=== PATIENT | female | born 1985 | race Caucasian/White ===

== ENCOUNTER 2017-08-15 15:39 | Emergency (ER) | payer SELFPAY ==
[2017-08-15 15:54] VITALS: BP 172/98
[2017-08-15] MEDS ORDERED: LIDOCAINE 2% VISCOUS SOLN 20 ML UDCUP PO ONE (16:07)
[2017-08-15] MEDS ORDERED: KETOROLAC TROMETHAMINE INJ/PF 30 MG/1 ML SDV IM ONE (16:15)
[2017-08-15] MEDS ORDERED: DIPHENHYDRAMINE HCL 50 MG CAPSULE PO ONE (16:15)
[2017-08-15] MEDS ORDERED: PROCHLORPERAZINE EDISYLATE INJ 10 MG/2 ML VIAL IM ONE (16:15)
--- NOTE | 2017-08-15 16:22 | ER Document Report ---
HPI - HPI Pain Level: 5 Notes: Patient is a 31-year-old female with a history of migraines and poor dentition who presents to the ED complaining of dental pain #14 with a possible abscess as well as a migraine headache 1 day. Both symptoms started about the same time. Patient states that she has been using some [id number] meds with minimal relief. She has been eating and drinking, but does have a decreased appetite. She is urinating normally and having normal bowel moods. Patient states that her headache is the same as her migraines that she normally has with associated nausea and light sensitivity. Denies any drug allergies. Denies any IV drug use. No other concerns or complaints at this time. Denies any headache, fever, head injury, neck pain, URI, sore throat, chest pain, palpitations, syncope, cough, shortness of breath, wheeze, dyspnea, abdominal pain, nausea/vomiting/diarrhea, urinary retention, dysuria, hematuria, loss of control of bowel or bladder, numbness/tingling, muscle paralysis/weakness, or rash. - ROS Systems Reviewed and Negative: Yes All other systems reviewed and negative Past Medical History - Social History Smoking Status: Unknown if Ever Smoked Family History: Reviewed & Not Pertinent Vertical Provider Document - CONSTITUTIONAL Agree With Documented VS: Yes Notes: PHYSICAL EXAMINATION: GENERAL: Well-appearing, well-nourished and in no acute distress. A&Ox4. Answers questions appropriately. HEAD: Atraumatic, normocephalic. EYES: Pupils equal round and reactive to light, extraocular movements intact, sclera anicteric, conjunctiva are normal. no nystagmus ENT: EAC clear b/l. TM's intact b/l without erythema, fluid, or perforation. Nares patent and without discharge. oropharynx clear without exudates. No tonsilar hypertrophy or erythema. Moist mucous membranes. No sinus tenderness. Uvula midline. No palatine shift. No tongue protrusion. No respiratory compromise. Mouth: Poor dentition. + severe decay and mild gingivitis. + small area of fluctuance noted. No facial swelling. + tenderness to tooth #14. NECK: Normal range of motion, supple without lymphadenopathy. No rigidity. No midline tenderness. LUNGS: Breath sounds clear to auscultation bilaterally and equal. No wheezes rales or rhonchi. HEART: Regular rate and rhythm without murmurs, rubs, gallops. ABDOMEN: Soft, nontender, nondistended abdomen. No guarding, no rebound. No masses appreciated. Normal bowel sounds present. No CVA tenderness bilaterally. Musculoskeletal: Ext b/l: FROM to passive/active. Strength 5+/5. No deficits noted. No bony tenderness of extremities. Back: FROM to passive/active. Strength 5+/5. No vertebral point tenderness, stepoffs, or deformities. Extremities: No cyanosis, clubbing, or edema b/l. Peripheral pulses 2+. Capillary refill less than 2 seconds. NEUROLOGICAL: NIH 0. GCS 15. Cranial nerves grossly intact. Normal speech, normal gait. Normal sensory, motor exams. Reflexes 2+ b/l. LILLY's negative. Pronator drift negative. PSYCH: Normal mood, normal affect. SKIN: Warm, Dry, normal turgor, no rashes or lesions noted. Course - Re-evaluation Re-evalutation: 08/15/17 16:46 Patient is an afebrile, well-hydrated, 31-year-old female who presents to the ED with a headache, suspect 1 of her usual migraines, and dental pain/ infection. Vitals are acceptable. PE is otherwise unremarkable for any focal neurological deficits. NIH 0, GCS 15, cranial nerves grossly intact. Patient is tolerating p.o. without any difficulties. She has no tachycardia, tachypnea , or hypoxia. I was able to puncture the very small swollen fluctuant area with some scant bloody and purulent discharge. Viscous lidocaine was given. I will be sending her home with a prescription for penicillin to take as directed as she has no insurance. No other labs or imaging warranted at this time based on H&P. Conservative measures otherwise for symptoms with close monitoring. Low suspicion for any meningitis, sepsis, peritonsillar/pharyngeal abscess, respiratory compromise, Audie's, temporal arteritis, or other emergent systemic condition at this time. Patient is aware this condition can change from initial presentation and he needs to monitor symptoms closely. Call to schedule an appointment with a dentist for further evaluation and management. Recheck with your PCM this week as well. Return to the ED with any worsening/ concerning symptoms otherwise as reviewed in discharge. Patient is in agreement. - Vital Signs Vital signs: Temp Pulse Resp BP Pulse Ox 98.3 F 71 16 172/98 H 99 08/15/17 15:53 08/15/17 15:53 08/15/17 15:53 08/15/17 15:53 08/15/17 15:53 Procedures - Incision and Drainage Mouth Time completed: 16:20 Type: Simple Incision Method: Incision made with needle - 18g Amount/type of drainage: scant bloody, purulent Notes: 08/15/17 16:25 pt tolerated proc well, no complications Discharge - Discharge Clinical Impression: Pain, dental, Dental infection Headache Qualifiers: Headache type: unspecified Headache chronicity pattern: acute headache Intractability: not intractable Qualified Code(s): R51 - Headache Condition: Stable Disposition: HOME, SELF-CARE Instructions: Headache ([facility]), Penicillin V K ([facility]), Toothache ([facility]) Additional Instructions: [place] and floss twice daily Maintain fluid intake Take antibiotics as directed Mouthwash, salt water gargles, peroxide rinse as needed Tylenol/ibuprofen as needed Recheck with PCM this week Call today/tomorrow and schedule an appointment with your dentist for further evaluation Return to the ED with any worsening symptoms and/or development of fever, worsening headache, changes in behavior/mentation/speech/vision, facial swelling , swelling of lips/tongue/throat, trouble swallowing, drooling, hoarseness, neck pain/stiffness, chest pain, palpitations, syncope, shortness of breath, trouble breathing, abdominal pain, n/v/d, numbness/tingling, or other worsening symptoms that are concerning to you. Prescriptions: Penicillin V Potassium [Penicillin Vk 250 mg Tablet] 500 mg PO BID #60 tablet Forms: Elevated Blood Pressure Referrals: [facility] [Provider Group] - Follow up in 1 week
== END 2017-08-15 16:50 | disposition home or self-care (01) ==
LOC: ER 15:39
PROC: 0C95XZZ Drainage of Upper Gingiva, External Approach (ICD-10-PCS; principal; 2017-08-15)
DX: K04.7 Periapical abscess without sinus (principal); R51 Headache; R11.0 Nausea
CPT/HCPCS: 99283; 96372; 41800; J3490; J1885; J0780

== ENCOUNTER 2017-09-28 13:38 | Emergency (ER) | payer SELFPAY ==
[2017-09-28 14:05] VITALS: BP 147/86
--- NOTE | 2017-09-28 15:01 | ER Document Report ---
ED Oral Problem - General Chief Complaint: Toothache Stated Complaint: ABSCESS,TOOTH PAIN Time Seen by Provider: 09/28/17 14:45 Mode of Arrival: Ambulatory Information source: Patient, [facility] Records Notes: This 31-year-old female patient comes emergency room complaining of pain into a left upper first molar. It started in the past day or so. She has had this before, most recently being seen here on 08/15/2017. She was treated with penicillin that time and states that it did bring the pain under control and resolved until now. She did try to follow-up with the [facility] locally, but was unable to get an appointment scheduled due to her work schedule and inability to call in the appropriate times. There is no fever, there are no other symptoms. TRAVEL OUTSIDE OF THE [place] IN LAST 30 DAYS: No - Related Data Allergies/Adverse Reactions: No Known Allergies Allergy (Verified 09/28/17 13:45) Past Medical History - General Information source: Patient, [facility] Records - Social History Smoking Status: Current Every Day Smoker Cigarette use (# per day): Yes - One half pack per day Chew tobacco use (# tins/day): No Smoking Education Provided: No Frequency of alcohol use: None Drug Abuse: None Occupation: [employer] Lives with: Family Family History: Reviewed & Not Pertinent Patient has suicidal ideation: No Patient has homicidal ideation: No - Past Medical History Cardiac Medical History: Reports: None Pulmonary Medical History: Reports: None EENT Medical History: Reports: None Neurological Medical History: Reports: Hx Migraine Endocrine Medical History: Reports: None Renal/ Medical History: Reports: None GI Medical History: Reports: None Musculoskeltal Medical History: Reports None Skin Medical History: Reports None Psychiatric Medical History: Reports: None Past Surgical History: Reports: Hx Adenoidectomy, Hx Section - x 2, Hx Cholecystectomy, Hx Orthopedic Surgery - Left knee ACL repair, Hx Tonsillectomy Review of Systems - Review of Systems Constitutional: No symptoms reported EENT: Dental problem Cardiovascular: No symptoms reported Respiratory: No symptoms reported Gastrointestinal: No symptoms reported Genitourinary: No symptoms reported Female Genitourinary: Last menstrual period - 09/08/2017. denies: Musculoskeletal: No symptoms reported Skin: No symptoms reported Hematologic/Lymphatic: No symptoms reported Neurological/Psychological: No symptoms reported Physical Exam - Vital signs Vitals: Temp Pulse Resp BP Pulse Ox 98.5 F 69 20 147/86 H 98 09/28/17 14:04 09/28/17 14:04 09/28/17 14:04 09/28/17 14:04 09/28/17 14:04 Interpretation: Normal - General General appearance: Appears well, Alert In distress: None - HEENT Head: Normocephalic, Atraumatic Eyes: Normal Pupils: PERRL Mouth/Lips: Other - Patient has partial plate in the upper front. The left upper most anterior tooth which I believe may be the first molar is decayed, broken off and tender. The second third molars on the upper left are also tender but not nearly so much as the first. There is minimal gum swelling around the involved molar. Mucous membranes: Normal Pharynx: Normal Neck: Normal - Respiratory Respiratory status: No respiratory distress Breath sounds: Normal - Cardiovascular Rhythm: Regular - Abdominal Inspection: Normal - Back Back: Normal - Extremities General upper extremity: Normal inspection General lower extremity: Normal inspection - Neurological Neuro grossly intact: Yes - Psychological Associated symptoms: Normal affect, Normal mood - Skin Skin Temperature: Warm Skin Moisture: Dry Skin Color: Normal Course - Vital Signs Vital signs: Temp Pulse Resp BP Pulse Ox 98.5 F 69 20 147/86 H 98 09/28/17 14:04 09/28/17 14:04 09/28/17 14:04 09/28/17 14:04 09/28/17 14:04 Discharge - Discharge Clinical Impression: Toothache Condition: Stable Disposition: HOME, SELF-CARE Instructions: Dentist Additional Instructions: Toothache Your pain is due to dental decay. The tooth must be repaired in order for you to feel better. You will, therefore, be referred to a dentist. Severe swelling or drainage around a tooth usually means a deep dental abscess. This also requires evaluation and treatment by the dentist, but antibiotics may be prescribed while awaiting dental treatment. You should be rechecked immediately if you develop major swelling of the face, increasing pain, a lump in the jaw or gums, headache, or fever. Take medication as prescribed. Take ibuprofen 800 mg every 8 hours, or 2 Aleve every 12 hours. Use warm soaks to the face and the painful swollen area. Follow-up with a local dentist sometime in the next 7-10 days if possible for reevaluation and treatment. RETURN TO THE EMERGENCY ROOM IF ANY NEW OR WORSENING SYMPTOMS. Prescriptions: Hydrocodone/Acetaminophen [Hydrocodon-Acetaminophen 5-325] 1 each PO ASDIR PRN # 12 tablet PRN Reason: For Pain Penicillin V Potassium [Penicillin Vk 500 mg Tablet] 500 mg PO QID #40 tablet
== END 2017-09-28 15:02 | disposition home or self-care (01) ==
LOC: ER 13:38
DX: K02.9 Dental caries, unspecified (principal); K08.89 Other specified disorders of teeth and supporting structures; F17.210 Nicotine dependence, cigarettes, uncomplicated
CPT/HCPCS: 99282

== ENCOUNTER 2018-03-01 08:47 | Emergency (ER) | payer SELFPAY ==
[2018-03-01 08:57] VITALS: BP 171/99
--- NOTE | 2018-03-01 09:29 | ER Document Report ---
HPI - HPI Patient complains to provider of: dental pain Time Seen by Provider: 03/01/18 09:26 Onset/Duration: Persistent Quality of pain: Achy Severity: Severe Pain Level: 4 Context: Patient presents to emergency department with complaints of dental pain to her left upper tooth. Reports she has a partial plate with a broken tooth and it is digging into her gums. No complaints of sensitivity to heat or cold. She denies fever nausea vomiting diarrhea. She reports she does not have insurance. Associated Symptoms: None Exacerbated by: Denies Relieved by: Denies Similar symptoms previously: No Recently seen / treated by doctor: No Past Medical History - General Information source: Patient Last Menstrual Period: 02/14/18 - Social History Smoking Status: Current Every Day Smoker Cigarette use (# per day): Yes Frequency of alcohol use: None Drug Abuse: None Occupation: [employer] Lives with: Family Family History: Reviewed & Not Pertinent Patient has suicidal ideation: No Patient has homicidal ideation: No Neurological Medical History: Reports: Hx Migraine Renal/ Medical History: Denies: Hx Peritoneal Dialysis Past Surgical History: Reports: Hx Adenoidectomy, Hx Section - x 2, Hx Cholecystectomy, Hx Myringotomy, Hx Orthopedic Surgery - Left knee ACL repair, Hx Tonsillectomy Vertical Provider Document - CONSTITUTIONAL Agree With Documented VS: Yes Exam Limitations: No Limitations General Appearance: WD/WN, No Apparent Distress - INFECTION CONTROL TRAVEL OUTSIDE OF THE [place] IN LAST 30 DAYS: No - HEENT HEENT: Atraumatic, Normocephalic. negative: Conjuctival Injection, Pharyngeal Exudate, Pharyngeal Erythema Mouth Diagram: 1 - Slight irritation where her partial meets her gum opens mouth wide good clear voice no ludwiqs, good airway - NECK Neck: Normal Inspection, Supple. negative: Lymphadenopathy-Left, Lymphadenopathy-Right - RESPIRATORY Respiratory: Breath Sounds Normal, No Respiratory Distress - CARDIOVASCULAR Cardiovascular: Regular Rate - MUSCULOSKELETAL/EXTREMETIES Musculoskeletal/Extremeties: MAEW, FROM - NEURO Level of Consciousness: Awake, Alert, Appropriate Motor/Sensory: No Motor Deficit - DERM Integumentary: Warm, Dry Course - Re-evaluation Re-evalutation: 03/01/18 09:52 Patient reports she felt better after the Tessalon Perles. We will give her a prescription for penicillin and Tessalon Perles. She was instructed take Tylenol Motrin for the pain also. Instructed on dental resources and given written information. Patient verbalized understanding to all information. Dictation of this chart was performed using voice recognition software; therefore, there may be some unintended grammatical errors. - Vital Signs Vital signs: Temp Pulse Resp BP Pulse Ox 98.5 F 79 18 171/99 H 100 03/01/18 08:56 03/01/18 08:56 03/01/18 08:56 03/01/18 08:56 03/01/18 08:56 Discharge - Discharge Clinical Impression: Pain, dental Condition: Stable Instructions: Penicillin V K ([facility]), Toothache ([facility]), Tessalon Perles ([facility]) Additional Instructions: *You have been evaluated for dental pain *Take medications as prescribed *Follow up with dentist within one week *Return to ED for worsening condition, changes, needs Monitor your blood pressure. Your blood pressure was elevated today. This may be because you were anxious, in pain or because you need medication. It is important to follow up with your primary care provider for full evaluation. Prescriptions: Benzonatate [Tessalon Perles 100 mg Capsule] 100 mg PO ASDIR PRN #40 capsule PRN Reason: Penicillin V Potassium [Penicillin Vk 500 mg Tablet] 500 mg PO BID #20 tablet Forms: Elevated Blood Pressure, Return to Work
[2018-03-01] MEDS ORDERED: BENZONATATE 100 MG CAPSULE PO ONE (09:39)
[2018-03-01] MEDS ORDERED: PENICILLIN V POTASSIUM 500 MG TABLET PO ONE (09:39)
== END 2018-03-01 10:15 | disposition home or self-care (01) ==
LOC: ER 08:47
DX: K08.9 Disorder of teeth and supporting structures, unspecified (principal); F17.210 Nicotine dependence, cigarettes, uncomplicated; Z90.49 Acquired absence of other specified parts of digestive tract
CPT/HCPCS: 99282

== ENCOUNTER 2018-04-05 11:48 | Emergency (ER) | payer SELFPAY ==
[2018-04-05 11:57] VITALS: BP 179/102
[2018-04-05] MEDS ORDERED: PROMETHAZINE HCL INJ 50 MG/1 ML VIAL IM PRN (12:04)
[2018-04-05] MEDS ORDERED: KETOROLAC TROMETHAMINE 60 MG/2 ML SDV IM ONE (12:04)
--- NOTE | 2018-04-05 12:07 | ER Document Report ---
ED Headache - General Chief Complaint: Headache Stated Complaint: HEADACHE Time Seen by Provider: 04/05/18 12:03 Mode of Arrival: Ambulatory Information source: Patient TRAVEL OUTSIDE OF THE [place] IN LAST 30 DAYS: No - HPI Patient complains to provider of: Headache, "Migraine" - pt with h/o migraine with typical migraine but only slight improvement with Goody powder. This is not the worst [place] of her life. Denies fever, neck pain - Related Data Allergies/Adverse Reactions: latex Allergy (Verified 04/05/18 11:51) Past Medical History - Social History Smoking Status: Current Every Day Smoker Chew tobacco use (# tins/day): No Frequency of alcohol use: None Drug Abuse: None Family History: Reviewed & Not Pertinent Patient has suicidal ideation: No Patient has homicidal ideation: No Neurological Medical History: Reports: Hx Migraine Renal/ Medical History: Denies: Hx Peritoneal Dialysis Past Surgical History: Reports: Hx Adenoidectomy, Hx Section - x 2, Hx Cholecystectomy, Hx Myringotomy, Hx Orthopedic Surgery - Left knee ACL repair, Hx Tonsillectomy Review of Systems - Review of Systems Constitutional: No symptoms reported EENT: No symptoms reported Cardiovascular: No symptoms reported Respiratory: No symptoms reported Gastrointestinal: No symptoms reported Musculoskeletal: No symptoms reported Neurological/Psychological: See HPI, Headaches -: Yes All other systems reviewed and negative Physical Exam - Vital signs Vitals: Temp Pulse Resp BP Pulse Ox 98 F 64 18 179/102 H 100 04/05/18 11:54 04/05/18 11:54 04/05/18 11:54 04/05/18 11:54 04/05/18 11:54 - General General appearance: Appears well In distress: Mild - HEENT Pharynx: Normal Neck: Normal - Respiratory Respiratory status: No respiratory distress Breath sounds: Normal - Cardiovascular Rhythm: Regular Heart sounds: Normal auscultation - Abdominal Inspection: Normal Tenderness: Nontender Organomegaly: No organomegaly - Neurological Neuro grossly intact: Yes Orientation: AAOx4 Speech: Normal Cranial nerves: Normal Course - Re-evaluation Re-evalutation: 04/05/18 14:06 pt feels much better at time of d/c -- expressed desire to go home - Vital Signs Vital signs: Temp Pulse Resp BP Pulse Ox 98 F 64 18 179/102 H 100 04/05/18 11:54 04/05/18 11:54 12/22/18 11:54 04/05/18 11:54 04/05/18 11:54 Discharge - Discharge Clinical Impression: Migraine Qualifiers: Migraine type: unspecified Status migrainosus presence: without status migrainosus Intractability: not intractable Qualified Code(s): G43.909 - Migraine, unspecified, not intractable, without status migrainosus Condition: Stable Disposition: HOME, SELF-CARE Instructions: Toradol Injection ([facility]), Headache ([facility]) Additional Instructions: rest, return if worse Referrals: MAIKOL RICHMOND MD [ACTIVE STAFF] - Follow up as needed
[2018-04-05] MEDS ORDERED: PROMETHAZINE HCL INJ 25 MG/1 ML VIAL ONE (12:14)
[2018-04-05] MEDS ORDERED: HYDROMORPHONE HCL INJ/PF 2 MG/ML AMPULE IM ONE (13:24)
== END 2018-04-05 14:14 | disposition home or self-care (01) ==
LOC: ER 11:48
DX: G43.909 Migraine, unspecified, not intractable, without status migrainosus (principal); F17.200 Nicotine dependence, unspecified, uncomplicated; Z91.040 Latex allergy status; Z90.49 Acquired absence of other specified parts of digestive tract
CPT/HCPCS: 99283; 96372; J1885; J1170; J2550